=== PATIENT | female | born 1960 | race Two or more races ===

== ENCOUNTER 2024-08-11 16:34 | Emergency (ER) | payer MEDICARE, OTHER ==
[~2024-08-11] VITALS: Ht 167.6 cm; Wt 73.0 kg
[2024-08-11 16:49] VITALS: TEMP 98.3
[2024-08-11] MEDS ORDERED: HYDROCODONE/APAP 5/325MG TABLET ONE (17:15)
[2024-08-11] MEDS ORDERED: LIDOCAINE 5% (PATCH) 1 EA PATCH TP ONE (17:15)
[2024-08-11] MEDS: HYDROCODONE/APAP 5/325MG TABLET PO ONE (17:20)
[2024-08-11] MEDS: LIDOCAINE 5% (PATCH) 1 EA PATCH TP SCH (17:21)
[2024-08-11] MEDS ORDERED: LIDO30AD10 TP (19:19)
[2024-08-11] MEDS ORDERED: HYDR-4209 PO (19:19)
[2024-08-11 19:24] VITALS: BP 118/75; O2SAT 98
== END 2024-08-11 19:23 | disposition home or self-care (01) ==
LOC: ER 16:49
DX: S20.212A Contusion of left front wall of thorax, initial encounter (principal); R07.89 Other chest pain; E78.5 Hyperlipidemia, unspecified; I10 Essential (primary) hypertension; F32.A Depression, unspecified; K21.9 Gastro-esophageal reflux disease without esophagitis; W18.39XA Other fall on same level, initial encounter; Y93.89 Activity, other specified; Y92.89 Other specified places as the place of occurrence of the external cause; Y99.8 Other external cause status
CPT/HCPCS: 71100-TC